=== PATIENT | female | born 1965 | race Two or more races ===

== ENCOUNTER → 2017-08-15 | Day surgery (SDC) | payer MEDICAID ==
[~2017-08-15] VITALS: Ht 167.6 cm; Wt 64.4 kg
[2017-08-15 06:47] VITALS: BP 119/82
[2017-08-15 10:46] VITALS: BP 119/80
== END | disposition home or self-care (01) ==
LOC: GI 06:11 → OR 07:30
PROVIDERS: Internal Medicine Gastroenterology
PROC: 0DJ08ZZ Inspection of Upper Intestinal Tract, Via Natural or Artificial Opening Endoscopic (ICD-10-PCS; principal; 2017-08-15 07:30)
PROC: 0DJD8ZZ Inspection of Lower Intestinal Tract, Via Natural or Artificial Opening Endoscopic (ICD-10-PCS; 2017-08-15 07:30)
DX: C79.9 Secondary malignant neoplasm of unspecified site (principal); Z53.8 Procedure and treatment not carried out for other reasons
CPT/HCPCS: 43235; 45378; J1200; J1610; J2250; J2310; J3010; J3490

== ENCOUNTER 2017-08-20 06:36 | Day surgery (SDC) | payer MEDICAID ==
[~2017-08-20] VITALS: Ht 167.6 cm; Wt 64.4 kg
[2017-08-20 06:50] VITALS: BP 113/65
[2017-08-20 11:08] VITALS: BP 112/76
== END 2017-08-20 10:20 | disposition home or self-care (01) ==
LOC: GI 06:36 → OR 07:30 → GI 07:30
PROVIDERS: Internal Medicine Gastroenterology
PROC: 0DBN8ZX Excision of Sigmoid Colon, Via Natural or Artificial Opening Endoscopic, Diagnostic (ICD-10-PCS; principal; 2017-08-20 07:30)
PROC: 3E0H8GC Introduction of Other Therapeutic Substance into Lower GI, Via Natural or Artificial Opening Endoscopic (ICD-10-PCS; 2017-08-20 07:30)
DX: C18.7 Malignant neoplasm of sigmoid colon (principal); C79.9 Secondary malignant neoplasm of unspecified site
CPT/HCPCS: 45378; J1200; J1610; J2250; J2310; J3010; J3490